=== PATIENT | female | born 1955 | race Caucasian/White ===

== ENCOUNTER → 2017-01-19 | Outpatient (CLI) | payer MEDICARE | END | disposition home or self-care (01) | LOC: US 12:33 | DX: R19.09 Other intra-abdominal and pelvic swelling, mass and lump (principal) ==

== ENCOUNTER → 2017-02-02 | Outpatient (CLI) | payer MEDICARE | END | disposition home or self-care (01) | LOC: CT 09:46 | DX: R19.09 Other intra-abdominal and pelvic swelling, mass and lump (principal); Z90.710 Acquired absence of both cervix and uterus ==